=== PATIENT | male | born 1955 | race American Indian/Alaskan Native ===

== ENCOUNTER 2024-11-19 14:51 | Inpatient (IN) | payer MEDICARE, MEDICAID ==
[~2024-11-19] VITALS: Ht 170.2 cm; Wt 83.8 kg
[2024-11-19] MEDS ORDERED: ASPI-1468 PO (17:23)
[2024-11-19] MEDS ORDERED: PHEN100C12 PO (17:23)
[2024-11-19] MEDS ORDERED: NALT50TA5 (17:23)
[2024-11-19] MEDS ORDERED: CHOL400T PO (17:23)
[2024-11-19] MEDS ORDERED: PHEN200C4 PO (17:23)
[2024-11-19 18:00] VITALS: BP 109/54; PULSE 63; RESP 17; TEMP 97.3; O2SAT 97
[2024-11-19] MEDS ORDERED: potassium Cl 20 mEq SR tablet PO PRN ×2 (18:05)
[2024-11-19] MEDS ORDERED: ondansetron/PF 4mg/2ml inj IV PRN (18:05)
[2024-11-19] MEDS ORDERED: magnesium sulf-water 4G/100mL 100 ML IV PRN (18:05)
[2024-11-19] MEDS ORDERED: acetaminophen 325mg tablet PO PRN (18:05)
[2024-11-19] MEDS ORDERED: magnesium sulf-water 2g/50mL 50 ML IV PRN (18:05)
[2024-11-19] MEDS ORDERED: magnesium hydroxide 30ml (MOM) UD suspension PO PRN (18:05)
[2024-11-19] MEDS ORDERED: magnesium Cl slow-release 64mg tablet PO PRN (18:05)
[2024-11-19] MEDS ORDERED: potassium Cl 40MEQ/1/2NS 520ml 520 ML IV PRN (18:05)
[2024-11-19 20:00] VITALS: RESP 17; O2SAT 97
[2024-11-19] MEDS: K and/or MAG REPLACEMENT MC SCH (20:00)
[2024-11-19] MEDS: docusate sod 100mg capsule PO SCH (20:11)
[2024-11-19] MEDS: phenytoin sod ER 100mg capsule PO SCH (20:12)
[2024-11-19 20:33] LABS: BASOPHILS % (AUTO) 0.7 % (0-1); EOSINOPHILS # (AUTO) 0.6 X10'3 (0-0.9); EOSINOPHILS % (AUTO) 10.1 % (0-6); HEMATOCRIT 41.1 % (42.0-52.0); HEMOGLOBIN 13.8 g/dl (14.0-17.9); LYMPHOCYTES # (AUTO) 0.9 X10'3 (1.1-4.8); LYMPHOCYTES % (AUTO) 16.8 % (21-51); MEAN CORPUSCULAR HEMOGLOBIN 31.7 PG (27.0-31.0); MEAN CORPUSCULAR HGB CONC 33.7 g/dL (33.0-36.5); MEAN CORPUSCULAR VOLUME 94.2 FL (78-98); MEAN PLATELET VOLUME 8.8 FL (7.4-10.4); MONOCYTES # (AUTO) 0.6 X10'3 (0-0.9); MONOCYTES % (AUTO) 10.2 % (2-12); NEUTROPHILS # (AUTO) 3.5 X10'3 (1.8-7.7); NEUTROPHILS % (AUTO) 62.2 % (42-75); PLATELET COUNT 220 X10'3 (140-440); RED BLOOD COUNT 4.36 X10'6 (4.70-6.10); RED CELL DISTRIBUTION WIDTH 14.2 % (11.5-14.5); WHITE BLOOD COUNT 5.6 X10'3 (4.5-11.0)
[2024-11-19 20:46] LABS: PROTHROMBIN TIME 10.6 SECONDS (9.0-12.0)
[2024-11-19 21:01] LABS: ALANINE AMINOTRANSFERASE 16 U/L (12-78); ALBUMIN 3.6 G/DL (3.4-5.0); ALKALINE PHOSPHATASE 168 IU/L (46-116); ANION GAP 10 (8-16); ASPARTATE AMINO TRANSFERASE 17 U/L (10-37); BILIRUBIN,TOTAL 0.2 MG/DL (0.1-1.0); BLOOD UREA NITROGEN 11 MG/DL (7-18); BUN/CREATININE RATIO 14.1 (10.0-20.0); CALCIUM 7.9 MG/DL (8.5-10.1); CHLORIDE 104 MMOL/L (99-107); CREATININE 0.78 MG/DL (0.60-1.10); GLUCOSE 213 MG/DL (70-104); PHENYTOIN (DILANTIN) 29.2 UG/ML (10.0-20.0); POTASSIUM 3.8 MMOL/L (3.5-5.1); SODIUM 139 MMOL/L (135-145); TOTAL CARBON DIOXIDE 25.3 MMOL/L (24-32); TOTAL PROTEIN 7.1 G/DL (6.4-8.2); eCRCL 86 ML/MIN; eGFR > 90 ML/MIN
[2024-11-19 22:00] VITALS: BP 104/46; PULSE 66; RESP 18; TEMP 98.1; O2SAT 98
[2024-11-20] VITALS (13 sets, daily range): BP systolic 104–144; BP diastolic 46–75; PULSE 56–67; RESP 7–20; TEMP 97.8–98.3; O2SAT 94–100
[2024-11-20] MEDS: normal saline 1000ml 1,000 ML IV SCH (00:28)
[2024-11-20 05:45] LABS: BASOPHILS % (AUTO) 0.6 % (0-1); EOSINOPHILS # (AUTO) 0.8 X10'3 (0-0.9); EOSINOPHILS % (AUTO) 16.2 % (0-6); HEMATOCRIT 38.2 % (42.0-52.0); LYMPHOCYTES # (AUTO) 1.4 X10'3 (1.1-4.8); LYMPHOCYTES % (AUTO) 27.9 % (21-51); MEAN CORPUSCULAR HEMOGLOBIN 31.8 PG (27.0-31.0); MEAN CORPUSCULAR VOLUME 93.7 FL (78-98); MEAN PLATELET VOLUME 8.2 FL (7.4-10.4); MONOCYTES # (AUTO) 0.6 X10'3 (0-0.9); MONOCYTES % (AUTO) 12.3 % (2-12); NEUTROPHILS # (AUTO) 2.1 X10'3 (1.8-7.7); PLATELET COUNT 211 X10'3 (140-440); RED BLOOD COUNT 4.07 X10'6 (4.70-6.10); RED CELL DISTRIBUTION WIDTH 14.4 % (11.5-14.5)
[2024-11-20 06:04] LABS: ALANINE AMINOTRANSFERASE 18 U/L (12-78); ALBUMIN 3.1 G/DL (3.4-5.0); ALKALINE PHOSPHATASE 152 IU/L (46-116); ANION GAP 5 (8-16); ASPARTATE AMINO TRANSFERASE 22 U/L (10-37); BILIRUBIN,TOTAL 0.3 MG/DL (0.1-1.0); BLOOD UREA NITROGEN 13 MG/DL (7-18); BUN/CREATININE RATIO 19.4 (10.0-20.0); CALCIUM 7.8 MG/DL (8.5-10.1); CHLORIDE 111 MMOL/L (99-107); CREATININE 0.67 MG/DL (0.60-1.10); GLUCOSE 92 MG/DL (70-104); MAGNESIUM 2.1 MG/DL (1.5-2.4); POTASSIUM 4.1 MMOL/L (3.5-5.1); SODIUM 145 MMOL/L (135-145); TOTAL CARBON DIOXIDE 28.6 MMOL/L (24-32); TOTAL PROTEIN 6.3 G/DL (6.4-8.2); eCRCL 100 ML/MIN; eGFR > 90 ML/MIN
[2024-11-20] MEDS: phenytoin sod ER 100mg capsule PO SCH (08:51)
[2024-11-20] MEDS ORDERED: bacitracin 15gm ointment TP ONE (12:04)
[2024-11-20] MEDS ORDERED: BUPIVAcaine 2.5mg/ml inj 50ml vial (contains preservative) ONE ×2 (12:04→13:52)
[2024-11-20] MEDS ORDERED: sevoflurane 250ml liquid IH ONE (12:30)
[2024-11-20] MEDS ORDERED: fentaNYL/PF 50MCG/1 ML 2ML syringe ONE (12:48)
[2024-11-20] MEDS ORDERED: midazolam 1 mg/ML 2ml injection ONE (12:49)
[2024-11-20] MEDS ORDERED: propofol inj 20 ML IV ONE (12:56)
[2024-11-20] MEDS ORDERED: LIDOcaine 1%/PF 5ML 10 MG/ML VIAL ONE (12:57)
[2024-11-20] MEDS ORDERED: ceFAZolin 1000mg inj ONE ×2 (13:01)
[2024-11-20] MEDS: BUPIVAcaine 2.5mg/ml inj 50ml vial (contains preservative) IJ ONE (13:25)
[2024-11-20] MEDS ORDERED: acetaminophen 1,000mg/100ml IV 100 ML IV ONE (14:06)
[2024-11-20] MEDS ORDERED: HYDR-3965 PO (21:19)
== END 2024-11-20 18:05 | disposition home or self-care (01) | DRG 505 ==
LOC: SUR 3N 16:19
PROVIDERS: ADMIT Internal Medicine; ATTEND Internal Medicine
PROC: 0QBP0ZZ Excision of Left Metatarsal, Open Approach (ICD-10-PCS; 2024-11-20)
PROC: 0QHP04Z Insertion of Internal Fixation Device into Left Metatarsal, Open Approach (ICD-10-PCS; 2024-11-20)
PROC: 0SGN04Z Fusion of Left Metatarsal-Phalangeal Joint with Internal Fixation Device, Open Approach (ICD-10-PCS; principal; 2024-11-20 12:30)
DX: M20.42 Other hammer toe(s) (acquired), left foot (principal); M21.072 Valgus deformity, not elsewhere classified, left ankle; G40.909 Epilepsy, unspecified, not intractable, without status epilepticus; M21.612 Bunion of left foot; Z88.0 Allergy status to penicillin; Z87.820 Personal history of traumatic brain injury
CPT/HCPCS: 36415; 71045; 76000; 80053; 80185; 82948; 83735; 85025; 85610; 87081; 93005; A4215; A4618; A6223; A6449; A7000; C1713; G0378; J0131; J0690; J1100; J2250; J2405; J2704; J3010; J3490; J7030